=== PATIENT | female | born 1980 | race Caucasian/White ===

== ENCOUNTER 2017-01-27 16:44 | Emergency (ER) | payer SELFPAY ==
[~2017-01-27] VITALS: Ht 167.6 cm; Wt 65.5 kg
[2017-01-27 16:44] VITALS: BP 124/68; PULSE 79; RESP 16; TEMP 98.7; O2SAT 100
--- NOTE | 2017-01-27 17:31 | PD ---
HPI Chief Complaint: Cold / Flu Symptoms Time Seen by Provider: 17:25 Travel History International Travel<30 days: No Contact w/Intl Traveler<30days: No Traveled to known affect area: No History of Present Illness HPI 36-year-old female with history of "not feeling a cough for the past week.". Patient has history of pneumonia in the past. Patient states he has "metal rods in her chest" for scoliosis.. She is concerned about possible pneumonia. Patient feels that her muscles are just staring off her lower thoracic region. She states no cough in the last few days. He denies urinary symptoms. She denies shortness of breath. She denies nausea or vomiting. He has no known drug allergies. PFSH Past Medical History ?: Not Social History Alcohol Use: No Tobacco Use: No Substance Use: No Allergies-Medications (Allergen,Severity, Reaction): Coded Allergies: No Known Allergies (Unverified , 01/27/17) Reported Meds & Prescriptions Reported Meds & Active Scripts Active Mapap (Acetaminophen) 500 Mg Tab 1,000 Mg PO Q4-6H PRN Ibuprofen 600 Mg Tab 600 Mg PO Q6H PRN Tizanidine (Tizanidine HCl) 4 Mg Cap 4 Mg PO TID Effexor XR 24 HR (Venlafaxine HCl) 75 Mg Cap 75 Mg PO DAILY Physical Exam Narrative GENERAL: Patient does not appear ill but does appear in discomfort. SKIN: Warm and dry. Normal color. Normal turgor. No rash. HEAD: Atraumatic. Normocephalic. EYES: Pupils equal and round. No scleral icterus. No injection or drainage. ENT: No nasal bleeding or discharge. Mucous membranes pink and moist. TMs are clear bilaterally. Pharynx is clear. Airway is patent. NECK: Trachea midline. Neck is supple and nontender. CARDIOVASCULAR: Regular rate and rhythm. RESPIRATORY: No accessory muscle use. Clear to auscultation. Breath sounds equal bilaterally. Patient complains of thoracic tenderness with palpation to both left and right lower thoracic wall without point tenderness or crepitus bilaterally. She complains of tenderness extending around both lower thoracic kaye along the rib cage with palpation. GASTROINTESTINAL: Abdomen soft, non-tender, nondistended. Hepatic and splenic margins not palpable. No CVA tenderness. MUSCULOSKELETAL: Extremities without clubbing, cyanosis, or edema. No obvious deformities. NEUROLOGICAL: Awake and alert. No obvious cranial nerve deficits. Motor grossly within normal limits. Five out of 5 muscle strength in the arms and legs. Normal speech. PSYCHIATRIC: Appropriate mood and affect; insight and judgment normal. Data Data Last Documented VS Vital Signs Date Time Temp Pulse Resp B/P (MAP) Pulse Ox O2 Delivery O2 Flow Rate FiO2 01/27/17 16:44 98.7 79 16 124/68 (86) 100 Room Air Orders Orders Chest, Pa & Lat (01/27/17 17:03) Ketorolac Inj (Toradol Inj) (01/27/17 17:45) Urinalysis - C+S If Indicated (01/27/17 17:31) Ed Discharge Order (01/27/17 18:31) Labs Laboratory Tests Test 01/27/17 17:35 Urine Color LIGHT-YELLOW Urine Turbidity CLEAR Urine pH 7.0 Urine Specific [place] 1.014 Urine Protein NEG mg/dL Urine Glucose (UA) NEG mg/dL Urine Ketones NEG mg/dL Urine Occult Blood NEG Urine Nitrite NEG Urine Bilirubin NEG Urine Urobilinogen LESS THAN 2.0 MG/DL Urine Leukocyte Esterase NEG Urine RBC LESS THAN 1 /hpf Urine WBC 1 /hpf Urine Squamous Epithelial Cells <1 /hpf Urine Amorphous Sediment RARE Microscopic Urinalysis Comment CULT NOT INDICATED MDM Medical Decision Making Medical Screen Exam Complete: Yes Emergency Medical Condition: Yes Differential Diagnosis Thoracic wall pain. Muscle spasm. Muscle skeletal pain. UTI. Pneumonia. Pleurisy. Narrative Course X-ray of the chest is ordered. Urinalysis is ordered. Patient is given 60 mg Toradol IM. Chest x-ray is unremarkable for acute process. Urinalysis is unremarkable. Patient states mild relief with Toradol. Patient requests refill of her Effexor 75 mg daily until she can get in with a local primary care physician. Patient is treated with tizanidine 4 mg up to 3 times a day #30. Patient also given Effexor XR 75 mg daily #30. Patient is given ibuprofen 600 mg 4 times a day #40. Patient also given Mapap 500 mg 2 tabs every 6 hours when necessary #80. Patient is referred to the [facility] for further evaluation and treatment. Patient should return to emergency department as needed. Diagnosis Primary Impression: Disorder of skeletal muscle Additional Impression: Anxiety Referrals: [facility] call for appointment Patient Instructions: General Instructions Additional Instructions: Patient is treated with tizanidine 4 mg up to 3 times a day #30. Patient also given Effexor XR 75 mg daily #30. Patient is given ibuprofen 600 mg 4 times a day #40. Patient also given Mapap 500 mg 2 tabs every 6 hours when necessary #80. Patient is referred to the [place] [facility] for further evaluation and treatment. Patient should return to emergency department as needed. Scripts Acetaminophen (Mapap) 500 Mg Tab 1000 MG PO Q4-6H Y for PAIN, #80 TAB 0 Refills Prov: Norm Segura MD 01/27/17 Ibuprofen (Ibuprofen) 600 Mg Tab 600 MG PO Q6H Y for Pain/Inflammation, #40 TAB 0 Refills Prov: Norm Segura MD 01/27/17 Tizanidine (Tizanidine) 4 Mg Cap 4 MG PO TID for Muscle Spasm, #30 CAP 0 Refills Prov: Norm Segura MD 01/27/17 Venlafaxine ER 24 HR (Effexor XR 24 HR) 75 Mg Cap 75 MG PO DAILY, #30 CAP 0 Refills Prov: Norm Segura MD 01/27/17 Disposition: 01 DISCHARGE HOME Condition: Stable Chase Arita Jan 27, 2017 17:31
[2017-01-27] MEDS ORDERED: KETOROLAC TROMETHAMINE 60 MG/2 ML (IM) VIAL IM ONE (17:45)
--- NOTE | 2017-01-27 17:54 | RADRPT ---
EXAM DATE/TIME: 01/27/2017 17:39 [facility] COMPARISON: No previous studies available for comparison. INDICATIONS : Cough and congestion. MEDICAL HISTORY : Pneumonia. SURGICAL HISTORY : Spinal rods. ENCOUNTER: Initial ACUITY: 2 days PAIN SCORE: 3/10 LOCATION: Bilateral chest FINDINGS: PA and lateral views of the chest demonstrate the lungs to be symmetrically aerated without evidence of mass, infiltrate or effusion. The cardiomediastinal contours are unremarkable. Osseous structure s are intact with chronic bony deformities of the right apex. CONCLUSION: Normal examination. Previous thoracic spine laminar wires and rods. Jayesh Norwood MD on January 27, 2017 at 17:52 Board Certified Radiologist. This report was verified electronically.
[2017-01-27 18:06] LABS: BLOOD, URINE NEG (NEG); COMMENT (UR) CULT NOT INDICATED; CULTURE IF INDICATED CULT NOT INDICATED; GLUCOSE,URINE NEG (NEG); KETONE, URINE NEG (NEG); NITRITE,URINE NEG (NEG); SQUAMOUS EPITHELIAL CELL URINE <1 /hpf (0-5); URINE COLOR LIGHT-YELLOW (YELLW/STRAW)
[2017-01-27] MEDS ORDERED: MAPA500T PO (18:27)
[2017-01-27] MEDS ORDERED: TIZA4CAP3 PO (18:27)
[2017-01-27] MEDS ORDERED: IBUP-232 PO (18:27)
[2017-01-27] MEDS ORDERED: VENL75XR PO (18:27)
== END 2017-01-27 18:37 | disposition home or self-care (01) ==
LOC: NEPK 16:44
DX: F41.9 Anxiety disorder, unspecified (principal); M62.89 Other specified disorders of muscle; Z79.899 Other long term (current) drug therapy
CPT/HCPCS: 71020; 81001; 96372; 99284; J1885